=== PATIENT | female | born 1990 | race Caucasian/White ===

== ENCOUNTER → 2017-01-31 | Outpatient (CLI) | payer OTHER, SELFPAY | END | disposition home or self-care (01) | LOC: RAD.S 08:05 | DX: E22.1 Hyperprolactinemia (principal); N64.3 Galactorrhea not associated with childbirth; E23.6 Other disorders of pituitary gland ==

== ENCOUNTER → 2017-02-12 | Outpatient (CLI) | payer OTHER, SELFPAY | END | disposition home or self-care (01) | LOC: RAD.S 08:00 | DX: G93.9 Disorder of brain, unspecified (principal); E23.6 Other disorders of pituitary gland ==